=== PATIENT | female | born 1980 | race Caucasian/White ===

== ENCOUNTER 2017-01-15 10:45 | Emergency (ER) | payer OTHER ==
[2017-01-15 10:59] VITALS: BP 107/69
--- NOTE | 2017-01-15 11:22 | UC ---
Throat Pain/Nasal Julien HPI - HPI Summary HPI Summary: THREE WEEKS OF SINUS CONGESTION, HEADACHE, POST NASAL DRIP. - History of Current Complaint Chief Complaint: UCRespiratory Stated Complaint: SINUS COMPLAINT Time Seen by Provider: 01/15/17 10:53 Hx Obtained From: Patient Hx Last Menstrual Period: 01/05/17 Onset/Duration: Gradual Onset, Lasting Weeks, Still Present Severity: Moderate Associated Signs & Symptoms: Positive: Hoarseness, Sinus Discomfort, Nasal Discharge - Epiglottits Risk Factors Epiglottis Risk Factors: Negative - Allergies/Home Medications Allergies/Adverse Reactions: Allergies Allergy/AdvReac Type Severity Reaction Status Date / Time Bee Venom Allergy Severe Anaphylatic Verified 01/15/17 10:55 Shock Cefaclor [From Ceclor] Allergy Hives Verified 01/15/17 10:55 Home Medications: Home Medications Dextromethorphan-Guaifenesin [Mucinex Dm Maximum Streng 60-1200 mg] 01/15/17 [ History] PMH/Surg Hx/FS Hx/Imm Hx Previously Healthy: Yes Other History Of: Negative For: HIV, Hepatitis B, Hepatitis C, Anticoagulant Therapy - Surgical History Surgical History: None - Family History Known Family History: Positive: Hypertension Negative: Cardiac Disease, Respiratory Disease - Social History Occupation: Employed Full-time Lives: With Family Alcohol Use: None Substance Use Type: None Smoking Status (MU): Never Smoked Tobacco - Immunization History Most Recent Influenza Vaccination: none this season Most Recent Tetanus Shot: 01/04/16 Most Recent Pneumonia Vaccination: none Review of Systems Constitutional: Negative Skin: Negative Eyes: Negative ENT: Nasal Discharge, Sinus Congestion, Sinus Pain/Tenderness Respiratory: Negative Cardiovascular: Negative Gastrointestinal: Negative Genitourinary: Negative Motor: Negative Neurovascular: Negative Musculoskeletal: Negative Neurological: Negative Psychological: Negative Is Patient Immunocompromised?: No All Other Systems Reviewed And Are Negative: Yes Physical Exam Triage Information Reviewed: Yes Appearance: No Pain Distress, Well-Nourished, Ill-Appearing Vital Signs: Initial Vital Signs Temp 98.3 F 01/15/17 10:56 Pulse 64 01/15/17 10:56 Resp 16 01/15/17 10:56 BP 107/69 01/15/17 10:56 Pulse Ox 98 01/15/17 10:56 Vital Signs Reviewed: Yes Eye Exam: Normal ENT: Positive: Hearing grossly normal, Nasal congestion, TM bulging, TM dull, Other: - BILATERAL MAXILLARY TENDERNESS Dental Exam: Normal Neck exam: Normal Neck: Positive: Supple, Nontender Respiratory Exam: Normal Respiratory: Positive: Chest non-tender, Lungs clear, Normal breath sounds, No respiratory distress, No accessory muscle use Cardiovascular Exam: Normal Cardiovascular: Positive: RRR, No Murmur, Pulses Normal Abdominal Exam: Normal Musculoskeletal Exam: Normal Neurological Exam: Normal Psychological Exam: Normal Skin Exam: Normal Throat Pain/Nasal Course/Dx - Differential Dx/Diagnosis Differential Diagnosis/HQI/PQRI: Pharyngitis, Sinusitis, Tonsillitis, URI Provider Diagnoses: SINUSITIS Discharge - Discharge Plan Condition: Stable Disposition: HOME Prescriptions: DOXYcycline CAP(*) [DOXYcycline 100MG CAP(*)] 100 mg PO BID #20 cap Fluticasone NASAL SPRAY 50MCG* [Flonase NASAL SPRAY 50MCG*] 2 spray BOTH NARES DAILY #1 btl Patient Education Materials: Sinusitis (ED) Referrals: Kassy Rudd NP [Primary Care Provider] -
== END 2017-01-15 11:26 | disposition home or self-care (01) ==
LOC: UCEAST 10:45
DX: J32.9 Chronic sinusitis, unspecified (principal)
CPT/HCPCS: 99212; G0463

== ENCOUNTER 2018-07-05 09:20 | Emergency (ER) | payer OTHER ==
[2018-07-05 09:57] VITALS: BP 146/97
--- NOTE | 2018-07-05 10:15 | UC ---
Throat Pain/Nasal Julien HPI - HPI Summary HPI Summary: Pt c/o gradual onset of cough, chest and nasal congestion, sinus pressure or pain X 10 days. - History of Current Complaint Chief Complaint: UCGeneralIllness Stated Complaint: CHEST CONGESTION Time Seen by Provider: 07/05/18 09:47 Hx Obtained From: Patient Hx Last Menstrual Period: 06/22/18 ?: No Onset/Duration: Gradual Onset, Lasting Days, Worse Since Severity: Moderate Pain Intensity: 6 Cough: Nonproductive Associated Signs & Symptoms: Positive: Sinus Discomfort, Nasal Discharge, Fever - resolved - Epiglottits Risk Factors Epiglottis Risk Factors: Negative - Allergies/Home Medications Allergies/Adverse Reactions: Allergies Allergy/AdvReac Type Severity Reaction Status Date / Time MS Bee Venom [Bee Venom] Allergy Severe Anaphylatic Verified 02/10/17 16:22 Shock MS Cefaclor [From Ceclor] Allergy Hives Verified 02/10/17 16:22 Home Medications: Home Medications Dm/Acetaminophen/Doxylamine [Night Cold-Flu Relief Liq Gel] 1 each PO ONCE 07/05 [History Confirmed 07/05/18] PMH/Surg Hx/FS Hx/Imm Hx Previously Healthy: Yes Other History Of: Negative For: HIV, Hepatitis B, Hepatitis C, Anticoagulant Therapy - Surgical History Surgical History: None - Family History Known Family History: Positive: Hypertension Negative: Cardiac Disease, Respiratory Disease - Social History Occupation: Employed Full-time Lives: With Family Alcohol Use: Weekly Substance Use Type: None Smoking Status (MU): Never Smoked Tobacco Have You Smoked in the Last Year: No - Immunization History Most Recent Influenza Vaccination: none this season Most Recent Tetanus Shot: 01/04/16 Most Recent Pneumonia Vaccination: none Vaccination Up to Date: Yes Review of Systems All Other Systems Reviewed And Are Negative: Yes Constitutional: Positive: Fatigue Skin: Positive: Negative Eyes: Positive: Negative ENT: Positive: Nasal Discharge, Sinus Congestion, Sinus Pain/Tenderness Respiratory: Positive: Cough Cardiovascular: Positive: Negative Gastrointestinal: Positive: Negative Genitourinary: Positive: Negative Motor: Positive: Negative Neurovascular: Positive: Negative Musculoskeletal: Positive: Negative Neurological: Positive: Negative Psychological: Positive: Negative Is Patient Immunocompromised?: No Physical Exam Triage Information Reviewed: Yes Appearance: Ill-Appearing Vital Signs: Initial Vital Signs Temp 97.9 F 07/05/18 09:52 Pulse 79 07/05/18 09:52 Resp 15 07/05/18 09:52 BP 146/97 07/05/18 09:52 Pulse Ox 98 07/05/18 09:52 Vital Signs Reviewed: Yes Eye Exam: Normal ENT: Positive: Nasal congestion, TM bulging - right, Sinus tenderness Dental Exam: Normal Neck exam: Normal Respiratory Exam: Normal Cardiovascular Exam: Normal Musculoskeletal Exam: Normal Neurological Exam: Normal Psychological Exam: Normal Skin Exam: Normal Throat Pain/Nasal Course/Dx - Differential Dx/Diagnosis Differential Diagnosis/HQI/PQRI: Sinusitis, URI Provider Diagnosis: Sinusitis, Allergic rhinitis Discharge - Sign-Out/Discharge Documenting (check all that apply): Patient Departure All imaging exams completed and their final reports reviewed: No Studies - Discharge Plan Condition: Stable Disposition: HOME Prescriptions: Amoxicillin PO (*) [Amoxicillin 875 MG (*)] 875 mg PO Q12H #20 tab Fexofenadine/Pseudoephedrine [Wendy-D 24 Hour Tablet] 1 each PO DAILY #20 tab.er.24h Patient Education Materials: Sinusitis (ED), Allergic Rhinitis (ED) Referrals: [facility] [[facility]] - If Needed No Primary Care Phys,NOPCP [Primary Care Provider] - - Billing Disposition and Condition Condition: STABLE Disposition: Home
== END 2018-07-05 10:30 | disposition home or self-care (01) ==
LOC: UCCORT 09:20
DX: J32.9 Chronic sinusitis, unspecified (principal); J30.9 Allergic rhinitis, unspecified; Z91.030 Bee allergy status; Z88.1 Allergy status to other antibiotic agents
CPT/HCPCS: 99212; G0463

== ENCOUNTER 2018-08-13 13:31 | Emergency (ER) | payer OTHER ==
[2018-08-13 14:32] VITALS: BP 144/92
[2018-08-13] MEDS ORDERED: DOXYcycline CAP(*) 100 MG PO ONE (14:56)
--- NOTE | 2018-08-13 14:59 | UC ---
Skin Complaint HPI - HPI Summary HPI Summary: 37-year-old female presents with complaints of tick bite to her left lower back. States she discovered the tick this morning and removed immediately. Patient did bring the tick with her and appears to be an adult deer tick that is not engorged. Unsure of how long the tick was embedded. She does note that she is presently being treated for a dental infection with pen VK however was seen by her dentist prior to coming to the urgent care center and is being switched to clindamycin. Denies fever, chills, flulike illness, myalgias, joint pain or swellin - History of Current Complaint Chief Complaint: UCSkin Stated Complaint: TICK Hx Obtained From: Patient Hx Last Menstrual Period: 07/19/18 Pain Intensity: 5 - Allergy/Home Medications Allergies/Adverse Reactions: Allergies Allergy/AdvReac Type Severity Reaction Status Date / Time bee venom protein (honey bee) Allergy Anaphylatic Verified 08/13/18 14:32 Shock cefaclor [From [facility]] Allergy Hives Verified 08/13/18 14:32 Home Medications: Home Medications Baclofen 10 mg PO TID PRN 08/13/18 [History Confirmed 08/13/18] Ibuprofen 600 mg PO ONCE PRN 08/13/18 [History Confirmed 08/13/18] Penicillin VK 500 MG TAB(NF) [Penicillin VK 500 mg Tab] 1 tab PO Q6HR 08/13/18 [ History Confirmed 08/13/18] PMH/Surg Hx/FS Hx/Imm Hx Previously Healthy: Yes - Denies significant PMH Other History Of: Negative For: HIV, Hepatitis B, Hepatitis C, Anticoagulant Therapy - Surgical History Surgical History: Yes Surgery Procedure, Year, and Place: Tonsils - Family History Known Family History: Positive: Hypertension Negative: Cardiac Disease, Respiratory Disease - Social History Occupation: Employed Full-time Lives: With Family Alcohol Use: Weekly Substance Use Type: None Smoking Status (MU): Never Smoked Tobacco Have You Smoked in the Last Year: No - Immunization History Most Recent Influenza Vaccination: none this season Most Recent Tetanus Shot: 01/04/16 Most Recent Pneumonia Vaccination: none Vaccination Up to Date: Yes Review of Systems All Other Systems Reviewed And Are Negative: Yes Constitutional: Negative: Fever, Chills Skin: Positive: Other - See HPI Respiratory: Positive: Negative Cardiovascular: Positive: Negative Gastrointestinal: Positive: Negative Genitourinary: Positive: Negative Musculoskeletal: Negative: Arthralgia, Myalgia Neurological: Positive: Negative Is Patient Immunocompromised?: No Physical Exam - Summary Physical Exam Summary: GENERAL APPEARANCE: Well developed, well nourished, alert and cooperative, and appears to be in no acute distress. HEAD: Mild-moderate facial swelling over the right mandible. CARDIAC: Normal S1 and S2. No S3, S4 or murmurs. Rhythm is regular. There is no peripheral edema, cyanosis or pallor. Extremities are warm and well perfused. Capillary refill is less than 2 seconds. Peripheral pulses intact. LUNGS: Clear to auscultation without rales, rhonchi, wheezing or diminished breath sounds. ABDOMEN: Positive bowel sounds. Soft, nondistended, nontender. No guarding or rebound. No masses or hepatosplenomegally. MUSKULOSKELETAL: ROM intact to all extremities. No joint erythema or tenderness. Normal muscular development. Normal gait. SKIN: Small eythematous lesion < 1 cm in diameter with central excoriation to left lower back. No retained mouth parts noted. Triage Information Reviewed: Yes Vital Signs: Initial Vital Signs Temp 98.6 F 08/13/18 14:29 Pulse 75 08/13/18 14:29 Resp 18 08/13/18 14:29 BP 144/92 08/13/18 14:29 Pulse Ox 100 08/13/18 14:29 Vital Signs Reviewed: Yes Course/Dx - Course Course Of Treatment: 37-year-old female presents with complaints of tick bite to her left lower back. States she discovered the tick this morning and removed immediately. Patient did bring the tick with her and appears to be an adult deer tick that is not engorged. Unsure of how long the tick was embedded. She does note that she is presently being treated for a dental infection with pen VK however was seen by her dentist prior to coming to the urgent care center and is being switched to clindamycin. Denies fever, chills, flulike illness, myalgias, joint pain or swelling. Afebrile. Vital signs stable. Exam revealed a small erythematous circular lesion less than onset of diameter with some central excoriation to her left lower back and was otherwise unremarkable. Discussed criteria for prophylactic treatment for Lyme disease with the patient as well as risks and benefits of treating especially in light of her other antibiotics however she is electing to receive doxycycline 200 mg 1 dose here in the clinic. She is to follow-up with the primary care provider as needed I reviewed signs and symptoms of Lyme disease as well as provided her with anticipatory guidance and warning symptoms. Verbalizes understanding and agrees with plan of care. - Differential Diagnoses - Skin Complaint Differential Diagnoses: Local Allergic Reaction, Tick Born Illness - Diagnoses Provider Diagnosis: Tick bite of lower back Discharge - Sign-Out/Discharge Documenting (check all that apply): Patient Departure All imaging exams completed and their final reports reviewed: No Studies - Discharge Plan Condition: Stable Disposition: HOME Patient Education Materials: Tick Bite (ED) Referrals: No Primary Care Phys,NOPCP [Primary Care Provider] - Additional Instructions: Ticks transmit infection only after they have attached and then taken a blood meal from their new host. A tick that has not attached cannot not pass any infection. Since the deer tick that transmits Lyme disease typically feeds for more than 36 hours before transmitting the organism that causes Lyme disease, the risk of acquiring Lyme disease from an tick bite is only 1.2 to 1.4 percent , even in an area where the disease is common. There is no benefit of blood testing for Lyme disease at the time of the tick bite because even people who become infected will not have a positive blood test until approximately two to six weeks after the tick bite. You did request prophylactic treatment for Lyme disease and were given a dose of doxycycline 200 mg in the clinic. To try to avoid getting bitten by a tick, you can: * Wear shoes, long-sleeved shirts, and long pants when you go outside. Keep ticks away from your skin by tucking your pants into your socks. * Wear light colors so you can spot any ticks that get on your clothes. * Wear bug spray or cream that contains DEET. (Do not use DEET on babies younger than 2 months.) On your clothes and gear, you can use bug repellents that have a chemical called "permethrin." * Shower within 2 hours of being outdoors if you think you have been in an area where there are ticks. * Put dry clothes briefly (for about 4 minutes) in a dryer after being outdoors. * Check your clothes and body for ticks after being outdoors. Be sure to check your scalp, waist, armpits, groin, and backs of your knees. Check your children , too. After a tick bite, you will need to monitor for signs of Lyme disease over the nexter several weeks even if you have been given antibiotics to prevent the infection. Seek immediate medical attention if you develop a bullseye rash, fever, flu-like symptoms including headache, stiff neck, fatigue, muscle aches, joint pain or swelling. - Billing Disposition and Condition Condition: STABLE Disposition: Home
== END 2018-08-13 15:06 | disposition home or self-care (01) ==
LOC: UCCORT 13:31
DX: S30.860A Insect bite (nonvenomous) of lower back and pelvis, initial encounter (principal); Z91.030 Bee allergy status; Z88.8 Allergy status to other drugs, medicaments and biological substances; X58.XXXA Exposure to other specified factors, initial encounter
CPT/HCPCS: 99212; A9270-GY; G0463

== ENCOUNTER 2018-09-27 12:57 | Emergency (ER) | payer OTHER ==
[2018-09-27 14:25] VITALS: BP 108/67
--- NOTE | 2018-09-27 14:39 | UC ---
UC General HPI - HPI Summary HPI Summary: pt states last pm x1 and this am x2, she had abdominal cramping with loose bowel movements that contained blood and mucous mixed in. she was on amoxicillin on 08/13 x6 days then again on 09/02 BID x 1 week and now again since 09/21 [id number] all for a recurrent dental issue to her R upper anterior molar. she denies hx IBD, sick contacts, raw seafood consumption, fever and hx of IBD. she has no known hemorrhoids and no pain with the BM's. she offers the amoxicillin bottle advised she consult a physician for theses s/s 's. - History of Current Complaint Chief Complaint: UCGI Stated Complaint: DIARRHEA Time Seen by Provider: 09/27/18 14:21 Hx Obtained From: Patient Hx Last Menstrual Period: August 25 Pain Intensity: 1 - Allergy/Home Medications Allergies/Adverse Reactions: Allergies Allergy/AdvReac Type Severity Reaction Status Date / Time bee venom protein (honey bee) Allergy Anaphylatic Verified 09/27/18 14:25 Shock cefaclor [From Ceclor] Allergy Hives Verified 09/27/18 14:25 Home Medications: Home Medications Amoxicillin PO (*) [Amoxicillin 500 MG CAP*] 500 mg PO Q6H 09/27/18 [History Confirmed 09/27/18] PMH/Surg Hx/FS Hx/Imm Hx - Additional Past Medical History Additional PMH: L sided neck pain. R upper dental infection. Other History Of: Negative For: HIV, Hepatitis B, Hepatitis C, Anticoagulant Therapy - Surgical History Surgical History: Yes Surgery Procedure, Year, and Place: Tonsils - Family History Known Family History: Positive: Hypertension Negative: Cardiac Disease, Respiratory Disease - Social History Occupation: Employed Full-time Alcohol Use: Weekly Substance Use Type: None Smoking Status (MU): Never Smoked Tobacco Have You Smoked in the Last Year: No - Immunization History Most Recent Influenza Vaccination: none this season Most Recent Tetanus Shot: 01/04/16 Most Recent Pneumonia Vaccination: none Vaccination Up to Date: Yes Review of Systems All Other Systems Reviewed And Are Negative: Yes Constitutional: Negative: Fever, Chills Gastrointestinal: Positive: Abdominal Pain - "cramping", Diarrhea - "loose with blood and mucous mixed in". Negative: Vomiting, Nausea Physical Exam Triage Information Reviewed: Yes Appearance: Well-Appearing Vital Signs: Initial Vital Signs Temp 99.2 F 09/27/18 14:17 Pulse 67 09/27/18 14:17 Resp 18 09/27/18 14:17 BP 108/67 09/27/18 14:17 Pulse Ox 99 09/27/18 14:17 Vital Signs Reviewed: Yes Eyes: Positive: Conjunctiva Clear ENT: Positive: Normal ENT inspection Dental: Negative: Gross Decay/Caries @, Abscess @ Neck: Positive: Supple, Nontender, No Lymphadenopathy Respiratory: Positive: Lungs clear, Normal breath sounds Cardiovascular: Positive: RRR, No Murmur Abdomen Description: Positive: Nontender, No Organomegaly, Soft, Other: - No rectal fissure or inflammed hemorrhoids. Negative: Distended, Guarding Bowel Sounds: Positive: Present. Negative: Hypoactive, Hyperactive Musculoskeletal: Positive: ROM Intact Neurological: Positive: Alert Psychological: Positive: Age Appropriate Behavior Skin Exam: Normal Course/Dx - Course Course Of Treatment: PT HX AND PE D/W DR VIERA. HE SUGGEST ER TRANSFER TO R/O C DIFF COLITIS OR OTHER POSSIBLE IBD. REPORT CALLED TO KIRSTIE REED NP AT [facility]. I ADVISED OF PT BEING ON HER 3RD ROUND OF AMOXICILLIN AND NOW HAVING ABDOMINAL CRAMPING PLUS LOOSE BM'S WITH BLOOD AND MUCOUS MIXED IN. - Diagnoses Provider Diagnosis: Abdominal cramping, Bloody stool, Mucus in stool Discharge - Sign-Out/Discharge Documenting (check all that apply): Patient Departure All imaging exams completed and their final reports reviewed: No Studies - Discharge Plan Condition: Stable Disposition: TRANS HIGHER LVL OF CARE FAC Referrals: No Primary Care Phys,NOPCP [Primary Care Provider] - Additional Instructions: LEAVE HERE AND GO DIRECTLY TO [facility]. - Billing Disposition and Condition Condition: STABLE Disposition: Trans Higher Lvl of Care Fac
== END 2018-09-27 15:09 | disposition short-term general hospital (02) ==
LOC: UCCORT 12:57
DX: R10.9 Unspecified abdominal pain (principal); K92.1 Melena; Z79.899 Other long term (current) drug therapy
CPT/HCPCS: 99212; G0463

== ENCOUNTER 2019-05-19 15:29 | Emergency (ER) | payer OTHER ==
[2019-05-19 16:36] VITALS: BP 116/80
--- NOTE | 2019-05-19 17:21 | UC ---
Throat Pain/Nasal Julien HPI - HPI Summary HPI Summary: 38-year-old woman comes in with with 10 days of upper respiratory tract infection symptoms. She mostly had a rhinorrhea and postnasal drip now is gone down into her chest. She did have some green rhinorrhea and sputum. With chest congestion her chest feels tight. In the past when she has been ill she is using her albuterol inhaler. She has not used one for this illness. She lays down at night coughing it's worse. Standing up walking around decrease the cough. - History of Current Complaint Chief Complaint: UCRespiratory Stated Complaint: COUGH,PND,CONGESTION Time Seen by Provider: 05/19/19 17:01 Hx Last Menstrual Period: August 25 Pain Intensity: 0 - Allergies/Home Medications Allergies/Adverse Reactions: Allergies Allergy/AdvReac Type Severity Reaction Status Date / Time bee venom protein (honey bee) Allergy Anaphylatic Verified 09/27/18 14:25 Shock cefaclor [From Ceclor] Allergy Hives Verified 09/27/18 14:25 PMH/Surg Hx/FS Hx/Imm Hx Previously Healthy: Yes Other History Of: Negative For: HIV, Hepatitis B, Hepatitis C, Anticoagulant Therapy - Surgical History Surgical History: Yes Surgery Procedure, Year, and Place: Tonsils - Family History Known Family History: Positive: Hypertension Negative: Cardiac Disease, Respiratory Disease - Social History Alcohol Use: Occasionally Substance Use Type: None Smoking Status (MU): Never Smoked Tobacco Have You Smoked in the Last Year: No - Immunization History Most Recent Influenza Vaccination: none this season Most Recent Tetanus Shot: 01/04/16 Most Recent Pneumonia Vaccination: none Vaccination Up to Date: Yes Review of Systems All Other Systems Reviewed And Are Negative: Yes Constitutional: Positive: Other - see hpi Skin: Positive: Negative Eyes: Positive: Negative ENT: Positive: Sore Throat, Nasal Discharge, Sinus Congestion, Sinus Pain/ Tenderness Respiratory: Positive: Shortness Of Breath, Cough, Other - see hpi Cardiovascular: Positive: Negative Gastrointestinal: Positive: Negative Motor: Positive: Negative Neurovascular: Positive: Negative Musculoskeletal: Positive: Negative Neurological/Mental Status: Positive: Negative Psychological: Positive: Negative Is Patient Immunocompromised?: No Physical Exam Triage Information Reviewed: Yes Appearance: No Pain Distress, Well-Nourished, Ill-Appearing - mild Vital Signs: Initial Vital Signs Temp 98.9 F 05/19/19 16:34 Pulse 75 05/19/19 16:34 Resp 16 05/19/19 16:34 BP 116/80 05/19/19 16:34 Pulse Ox 99 05/19/19 16:34 Vital Signs Reviewed: Yes Eye Exam: Normal Eyes: Positive: Conjunctiva Clear ENT: Positive: Pharyngeal erythema, Nasal congestion, Nasal drainage, TMs normal Neck: Positive: Supple Respiratory: Positive: Lungs clear, Normal breath sounds, No respiratory distress Cardiovascular: Positive: RRR Musculoskeletal: Positive: Strength Intact, ROM Intact Neurological: Positive: Alert, Muscle Tone Normal Psychological: Positive: Age Appropriate Behavior Skin Exam: Normal Throat Pain/Nasal Course/Dx - Course Course Of Treatment: Patient's had 10 days or more of symptoms and she feels like she's getting worse. We'll treat with doxycycline and albuterol. Also discussed cussed using guaifenesin to thin secretions and also dextromethorphan and Tessalon Perles for cough. We discussed chest x-ray and at this time and is to treat and the patient does not improve consider chest x-ray at that time. Patient's to get reevaluated if not improving or worse. - Differential Dx/Diagnosis Provider Diagnosis: Bronchitis with bronchospasm Discharge ED - Sign-Out/Discharge Documenting (check all that apply): Patient Departure All imaging exams completed and their final reports reviewed: No Studies - Discharge Plan Condition: Stable Disposition: HOME Prescriptions: Albuterol HFA INHALER* [Ventolin HFA Inhaler*] 2 puff INH Q4H PRN #1 mdi PRN Reason: Wheezing Benzonatate CAP* [Tessalon 100 MG CAP*] 100 mg PO TID PRN #20 cap PRN Reason: Cough DOXYcycline CAP(*) [DOXYcycline 100MG CAP(*)] 100 mg PO BID #20 cap Fluconazole 150 MG TAB* [Diflucan 150 MG TAB*] 150 mg PO ONCE #2 tablet Patient Education Materials: Acute Bronchitis (ED), Bronchospasm (ED) Referrals: Elizabeth Barrientos MD [Primary Care Provider] - Additional Instructions: FOLLOW UP WITH YOUR DOCTOR IF NOT COMPLETELY IMPROVED. Trying [id number] medication with guaifenesin in it for thinning secretions. Trying [id number] medication with dextromethorphan and it helped suppress cough. You can use the Tessalon Perles to suppress cough also. GET REEVALUATED SOONER IF NOT IMPROVED OR WORSE OR ANY QUESTIONS OR CONCERNS. - Billing Disposition and Condition Condition: STABLE Disposition: Home
== END 2019-05-19 17:27 | disposition home or self-care (01) ==
LOC: UCCORT 15:29
DX: J40 Bronchitis, not specified as acute or chronic (principal); J98.01 Acute bronchospasm; J02.9 Acute pharyngitis, unspecified; R09.81 Nasal congestion; Z88.1 Allergy status to other antibiotic agents; Z91.030 Bee allergy status
CPT/HCPCS: 99212; G0463

== ENCOUNTER 2019-05-27 12:50 | Emergency (ER) | payer OTHER ==
[2019-05-27 14:22] VITALS: BP 124/77
--- NOTE | 2019-05-27 14:40 | UC ---
Throat Pain/Nasal Julien HPI - HPI Summary HPI Summary: "A chest cold that I can't manage get rid of." Nasal congestion, PND, and mostly nonproductive cough for eightteen days. When asked, denies fever, chills. Mild myalgias. Patient has taken a Z-Harpreet and is currently taking doxycycline. Here 05/19/19, diagnosed with bronchitis with bronchospasm, and treated with doxyxycline, albuterol inhaler, and Tessalon. Patient is interested in a steroid and possibly a chest x-ray. - History of Current Complaint Chief Complaint: UCRespiratory Stated Complaint: CHEST CONGESTION Time Seen by Provider: 05/27/19 14:13 Hx Obtained From: Patient Hx Last Menstrual Period: 05/22/19 Onset/Duration: Gradual Onset, Lasting Weeks Severity: Moderate Pain Intensity: 0 Associated Signs & Symptoms: Positive: Dysphagia, Wheezing, Sinus Discomfort, Nasal Discharge - Allergies/Home Medications Allergies/Adverse Reactions: Allergies Allergy/AdvReac Type Severity Reaction Status Date / Time bee venom protein (honey bee) Allergy Anaphylatic Verified 05/27/19 14:19 Shock cefaclor [From Ceclor] Allergy Hives Verified 05/27/19 14:19 Home Medications: Home Medications Albuterol HFA INHALER* [Ventolin HFA Inhaler*] 2 puff INH Q4H PRN #1 mdi [Rx Confirmed 05/27/19] Benzonatate CAP* [Tessalon 100 MG CAP*] 100 mg PO TID PRN #20 cap 05/19/19 [Rx Confirmed 05/27/19] DOXYcycline CAP(*) [DOXYcycline 100MG CAP(*)] 100 mg PO BID #20 cap 05/19/19 [ Rx Confirmed 05/27/19] Fluconazole 150 MG TAB* [Diflucan 150 MG TAB*] 150 mg PO ONCE #2 tablet [Rx Confirmed 05/27/19] predniSONE [Prednisone 20 MG TAB] 40 mg PO DAILY #10 tablet 05/27/19 [Rx] PMH/Surg Hx/FS Hx/Imm Hx Previously Healthy: Yes Other History Of: Negative For: HIV, Hepatitis B, Hepatitis C, Anticoagulant Therapy - Surgical History Surgical History: Yes Surgery Procedure, Year, and Place: Tonsillectomy, ~1990, [place] - Family History Known Family History: Positive: Hypertension Negative: Cardiac Disease, Respiratory Disease - Social History Alcohol Use: Occasionally Substance Use Type: None Smoking Status (MU): Never Smoked Tobacco Have You Smoked in the Last Year: No - Immunization History Most Recent Influenza Vaccination: none this season Most Recent Tetanus Shot: 01/04/16 Most Recent Pneumonia Vaccination: none Vaccination Up to Date: Yes Review of Systems All Other Systems Reviewed And Are Negative: Yes Constitutional: Positive: Fatigue ENT: Positive: Sore Throat, Ear Ache, Nasal Discharge, Sinus Congestion Respiratory: Positive: Cough Is Patient Immunocompromised?: No Physical Exam Triage Information Reviewed: Yes Appearance: Well-Nourished, Ill-Appearing, Pain Distress Vital Signs: Initial Vital Signs Temp 97.8 F 05/27/19 14:14 Pulse 66 05/27/19 14:14 Resp 16 05/27/19 14:14 BP 124/77 05/27/19 14:14 Pulse Ox 100 05/27/19 14:14 Vital Signs Reviewed: Yes Eye Exam: Normal ENT: Positive: Pharyngeal erythema, Nasal congestion, TM bulging - right ear Dental Exam: Normal Neck exam: Normal Respiratory: Positive: Chest non-tender, Lungs clear, Normal breath sounds, Decreased breath sounds Cardiovascular Exam: Normal Abdominal Exam: Normal Bowel Sounds: Positive: Present Musculoskeletal Exam: Normal Neurological Exam: Normal Psychological Exam: Normal Skin Exam: Normal Throat Pain/Nasal Course/Dx - Course Course Of Treatment: hx obtained, exam performed, meds reviewed, xray obtained, rapid flu obtained. - Differential Dx/Diagnosis Provider Diagnosis: Influenza B Discharge ED - Sign-Out/Discharge Documenting (check all that apply): Patient Departure All imaging exams completed and their final reports reviewed: No Studies - Discharge Plan Condition: Stable Disposition: HOME Prescriptions: predniSONE [Prednisone 20 MG TAB] 40 mg PO DAILY #10 tablet Patient Education Materials: Influenza (ED) Referrals: Elizabeth Barrientos MD [Primary Care Provider] - Additional Instructions: 1. stop the antibiotics 2. Take the prednisone for the spastic cough. 3. Rest, increased fluids and symptomatic treatment. - Billing Disposition and Condition Condition: STABLE Disposition: Home - Attestation Statements Provider Attestation: I was available for consult. This patient was seen by the RAVINDRA. The patient was not presented to, seen by, or examined by me. -Orlin
[2019-05-27 14:57] LABS: Influenza B Molecular POSITIVE (Negative)
== END 2019-05-27 15:31 | disposition home or self-care (01) ==
LOC: UCCORT 12:50
DX: J10.1 Influenza due to other identified influenza virus with other respiratory manifestations (principal); Z91.030 Bee allergy status; Z88.1 Allergy status to other antibiotic agents
CPT/HCPCS: 71046; 99212; G0463